=== PATIENT | male | born 1955 | race Caucasian/White ===

== ENCOUNTER → 2017-02-22 | Outpatient (CLI) | payer BC ==
[2017-02-22 12:01] LABS: Hemoglobin A1C 7.2 % (4.2-6.1)
== END | disposition home or self-care (01) ==
LOC: LABWHC1 06:58
PROVIDERS: ATTEND Surgery
DX: E11.9 Type 2 diabetes mellitus without complications (principal)
CPT/HCPCS: 36415; 83036

== ENCOUNTER 2017-04-07 08:30 | Day surgery (SDC) | payer BC ==
[2017-04-01 11:03] VITALS: BMI 27.1
[~2017-04-07 08:30] MED LIST: DEXAMETHASONE SOD PHOSPHATE 10 MG/ML 1 ML VIAL IV ONE; HEPARIN SODIUM,PORCINE 5,000 UNIT/ML 1 ML VIAL SQ ONE; HYDROmorphone 1 MG/ML 1 ML SYRINGE IVP PRN; LACTATED RINGERS 1,000 ML IV SCH; LIDOCAINE 1% 20 ML VIAL (10MG/ML) FOR IV START INTRADERMA PRN; ONDANSETRON 4 MG/2 ML VIAL IVP ONE; SCOPOLAMINE 1.5MG/72HR PATCH TRANSDERM ONE; ceFAZolin 2 GM in SODIUM CHLORIDE 0.9% 100 ML IVPB ONE
[2017-04-07 09:06] LABS: Glucose,Whole Blood 115 mg/dL (75-99)
[2017-04-07] MEDS ORDERED: SUCCINYLCHOLINE CHLORIDE 100 MG/5 ML SYR IV ONE (09:54)
[2017-04-07] MEDS ORDERED: MIDAZOLAM 2 MG/2 ML VIAL ONE (09:54)
[2017-04-07] MEDS ORDERED: PROPOFOL 10 MG/ML 20 ML VIAL IV ONE (09:54)
[2017-04-07] MEDS ORDERED: fentaNYL (PF) 50 MCG/ML 2 ML AMP ONE (09:54)
[2017-04-07] MEDS ORDERED: HYDROmorphone (PF) 1 MG/ML ONE (09:54)
[2017-04-07] MEDS ORDERED: NEOSTIGMINE 1 MG/ML 10 ML VIAL ONE (09:54)
[2017-04-07] MEDS ORDERED: LIDOCAINE 1% INJ 10MG/ML (20 ML MDV) ONE (09:54)
[2017-04-07] MEDS ORDERED: GLYCOPYRROLATE 0.2 MG/ML 2 ML VIAL ONE (09:54)
[2017-04-07] MEDS ORDERED: ROCURONIUM BROMIDE 10 MG/ML 10 ML VIAL IV ONE (09:54)
[2017-04-07] MEDS ORDERED: BUPIVACAINE-EPI 0.5%-1:200,000 10 ML VIAL SQ ONE (10:31)
--- NOTE | 2017-04-07 11:36 | P.OP ---
Date of Procedure: 04/07/17 Preoperative Diagnosis: Left inguinal hernia Postoperative Diagnosis: Left direct inguinal hernia incarcerated containing fat. Procedure(s) Performed: Robot assisted laparoscopic left inguinal hernia repair with mesh using mesh Implants: 10 x 15 Bard progrip mesh Anesthesia: JANEL Surgeon: Omayra Nam Estimated Blood Loss (ml): 5 Pathology: none sent Condition: stable Disposition: PACU Indications for Procedure: Operative Findings: Description of Procedure: Informed consent was obtained patient and then The patient was brought to the operating room and placed in supine position. General anesthesia with endotracheal intubation was performed as per anesthesia team. As the patient had urinated no Awan catheter was. Chlorprep was used to prep the skin followed by application of sterile drapes . He was placed in the lithotomy position. A timeout was performed to verify correct patient, correct procedure and correct side. Patient was confirmed to receive perioperative IV antibiotics , subcutaneous heparin 5000 units and bilateral SCDs were placed. The left upper quadrant point was identified and a stab incision was made. Veress needle was introduced and placement was confirmed with the help of the drop test. The abdomen was then insufflated to 15 mmHg. Once that was done 5 mm port was introduced into the left upper quadrant using the Optiview technique after which a 12 mm port was placed in the supraumbilical position and a 8 mm port in the right lower quadrant and then after that in the left upper quadrant. The robot was then docked with the central camera port and the 2 side working ports. The degree of scope was introduced and the abdomen down through the 12 mm port site. Cardiovascular and the left hand and scissor in the right hand was introduced in the abdominal cavity after which the median umbilical fold was retracted laterally towards the left side a small incision was made at the junction of the umbilical fold and the peritoneum and carried all the way laterally thus creating a small plane in the preperitoneal space. This space was further dissected with the help of blunt dissection using gentle stroking maneuvers all the way down to Celio ligament medially and laterally we went inferior exposing the vessels inferiorly. 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 A hole in the peritoneum was closed with 2 0 vicrul. once that was done procedure was completed all incisions and camera was removed and a laparoscope was introduced and the 12 mm port site was closed with the help of a Greg Antoine the direct vision after which gas was turned off abdomen was thoroughly desufflated skins was closed with the help of 4-0 Monocryl and Dermabond. The patient was extubated and taken to recovery room in stable condition patient tolerated the procedure well there were no complications
[2017-04-07 11:50] VITALS: TEMP 98.4
[2017-04-07 12:01] LABS: Glucose,Whole Blood 183 mg/dL (75-99)
[2017-04-07] MEDS ORDERED: KETOROLAC 30 MG/ML 1 ML VIAL IVP ONE (12:19)
[2017-04-07 12:20] VITALS: RESP 16
[2017-04-07 13:03] LABS: Glucose,Whole Blood 156 mg/dL (75-99)
[2017-04-07] MEDS ORDERED: HYDROcodone/APAP 5-325MG 1 EACH TAB PO ONE (13:05)
[2017-04-07] MEDS ORDERED: LACTATED RINGERS 1,000 ML IV ONE (13:15)
[2017-04-07 13:26] VITALS: BP 125/74; PULSE 74
== END 2017-04-07 15:01 | disposition home or self-care (01) ==
LOC: OR 08:30
PROVIDERS: ATTEND Surgery
DX: K40.30 Unilateral inguinal hernia, with obstruction, without gangrene, not specified as recurrent (principal); I10 Essential (primary) hypertension; E11.9 Type 2 diabetes mellitus without complications; Z79.84 Long term (current) use of oral hypoglycemic drugs; E78.5 Hyperlipidemia, unspecified; Z79.82 Long term (current) use of aspirin; Z79.899 Other long term (current) drug therapy
CPT/HCPCS: 49650; S2900